=== PATIENT | male | born 1970 | race Caucasian/White ===

== ENCOUNTER 2018-03-31 23:04 | Emergency (ER) | payer OTHER ==
--- NOTE | 2018-04-01 07:01 | EDM.PDOC ---
ED HPI GENERAL MEDICAL PROBLEM - General Chief Complaint: Chest Pain Stated Complaint: Chest Pain/Body Aches/Tingling in Arms Time Seen by Provider: 03/31/18 23:20 Source of Information: Reports: Patient History Limitations: Reports: No Limitations - History of Present Illness INITIAL COMMENTS - FREE TEXT/NARRATIVE: Pt. states that he has been experiencing body aches, chest pain, and weakness for several days. She denies any fever or chills. No N/V/D. He has not recently been ill. Pt. states that he is experiencing some substernal chest pain, respirophasic in nature, that started last night, He denies any other symptoms. 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 Chest Pain/Body Aches Pain Score (Numeric/FACES): 7 - Related Data Allergies Allergy/AdvReac Type Severity Reaction Status Date / Time ciprofloxacin [From Cipro] Allergy Facial Verified 03/31/18 23:56 Swelling Home Meds: Home Meds ALPRAZolam [Xanax] 0.5 mg PO BID PRN 04/01/18 [History] Lisinopril [Prinivil] 20 mg PO DAILY 04/01/18 [History] Nabumetone [Relafen] 750 mg PO BID 04/01/18 [History] Sertraline [Zoloft] 150 mg PO DAILY 04/01/18 [History] Simvastatin [Zocor] 40 mg PO BEDTIME 04/01/18 [History] busPIRone [Buspar] 10 mg PO BEDTIME 04/01/18 [History] Past Medical History HEENT History: Reports: Impaired Vision Cardiovascular History: Reports: High Cholesterol, Hypertension Musculoskeletal History: Reports: Arthritis, Back Pain, Chronic Psychiatric History: Reports: Anxiety, Depression - Infectious Disease History Infectious Disease History: Reports: Shingles - Past Surgical History HEENT Surgical History: Reports: Naso-Sinus Surgery Social & Family History - Tobacco Use Smoking Status *Q: Former Smoker Used Tobacco, but Quit: Yes Month/Year Tobacco Last Used: Quite smoking cigarettes 10 years ago - Alcohol Use Days Per Week of Alcohol Use: 5 Number of Drinks Per Day: 3 Total Drinks Per Week: 15 - Recreational Drug Use Recreational Drug Use: No ED ROS GENERAL - Review of Systems Review Of Systems: See Below Constitutional: Reports: No Symptoms HEENT: Reports: No Symptoms Respiratory: Reports: No Symptoms Cardiovascular: Reports: No Symptoms Endocrine: Reports: No Symptoms GI/Abdominal: Reports: No Symptoms : Reports: No Symptoms Musculoskeletal: Reports: Joint Pain, Muscle Pain Skin: Reports: No Symptoms Neurological: Reports: No Symptoms Psychiatric: Reports: No Symptoms Hematologic/Lymphatic: Reports: No Symptoms Immunologic: Reports: No Symptoms ED EXAM, GENERAL - Physical Exam Exam: See Below Exam Limited By: No Limitations General Appearance: Alert, WD/WN, No Apparent Distress Eye Exam: Bilateral Eye: EOMI, Normal Fundi, Normal Inspection, PERRL Ears: Normal External Exam, Normal Canal, Hearing Grossly Normal, Normal TMs Ear Exam: Bilateral Ear: Auricle Normal, Canal Normal, TM normal Nose: Normal Inspection, Normal Mucosa, No Blood Throat/Mouth: Normal Inspection, Normal Lips, Normal Teeth, Normal Gums, Normal Oropharynx, Normal Voice, No Airway Compromise Head: Atraumatic, Normocephalic Neck: Normal Inspection, Supple, Non-Tender, Full Range of Motion Respiratory/Chest: No Respiratory Distress, Lungs Clear, Normal Breath Sounds, No Accessory Muscle Use, Chest Non-Tender Cardiovascular: Normal Peripheral Pulses, Regular Rate, Rhythm, No Edema, No Gallop, No JVD, No Murmur, No Rub GI/Abdominal: Normal Bowel Sounds, Soft, Non-Tender, No Organomegaly, No Distention, No Abnormal Bruit, No Mass Back Exam: Normal Inspection, Full Range of Motion, NT Extremities: Normal Inspection, Normal Range of Motion, Non-Tender, Normal Capillary Refill, No Pedal Edema Neurological: Alert, Oriented, CN II-XII Intact, Normal Cognition, Normal Gait, Normal Reflexes, No Motor/Sensory Deficits Psychiatric: Normal Affect, Normal Mood Skin Exam: Warm, Dry, Intact, Normal Color, No Rash Lymphatic: No Adenopathy EKG INTERPRETATION Rhythm: NSR [place]: Normal P-Wave: Present QRS: Normal ST-T: Normal QT: Normal Course - Vital Signs Last Recorded V/S: Last Vital Signs Temp 37.2 C 03/31/18 23:05 Pulse 83 03/31/18 23:56 Resp 18 03/31/18 23:56 BP 118/77 03/31/18 23:56 Pulse Ox 93 L 03/31/18 23:56 - Orders/Labs/Meds Orders: Active Orders 24 hr Category Date Time Status EKG Documentation Completion [RC] STAT Care 03/31/18 23:30 Active Chest 2V [CR] Stat Exams 03/31/18 23:29 Taken INFLUENZA A+B AG SCREEN [RM] Stat Lab 03/31/18 23:44 Ordered LYME, WESTERN BLOT, SERUM [REF] Stat Lab 03/31/18 23:31 Received [place] VIRUS IGM [REF] Stat Lab 03/31/18 23:30 Received Labs: Laboratory Tests 03/31/18 04/01/18 04/01/18 Range/Units 00:05 00:00 00:05 WBC 4.5 (4.0-10.0) x10^3/uL RBC 4.78 (4.5-6.0) x10^6/uL Hgb 15.0 (14.0-18.0) g/dL Hct 43.0 (40.0-52.0) % MCV 90.0 (78.0-93.0) fL MCH 31.4 (26.0-32.0) pg MCHC 34.9 (32.0-36.0) g/dL RDW Coeff of Leela 12.6 (10.0-15.0) % Plt Count 180 (130-400) x10^3/uL Neut % (Auto) 59.2 (50.0-80.0) % Lymph % (Auto) 28.1 (25.0-50.0) % [place] % (Auto) 11.2 H (2.0-11.0) % Eos % (Auto) 1.1 (0.0-4.0) % Baso % (Auto) 0.4 (0.2-1.2) % PT (9.6-11.4) SEC INR (2.0-3.5) Sodium 138 (136-145) mmol/L Potassium 3.2 L (3.5-5.1) mmol/L Chloride 103 (98-107) mmol/L Carbon Dioxide 25 (21-32) mmol/L Anion Gap 13.2 (10-20) mmol/L BUN 11 (7-18) mg/dL Creatinine 1.3 (0.70-1.30) mg/dL Est Cr Clr Drug Dosing 79.39 mL/min Estimated GFR (MDRD) 59 Glucose 166 H (74-106) mg/dL Calcium 8.4 L (8.5-10.1) mg/dL Corrected Calcium 8.64 (8.5-10.1) mg/dL Magnesium 2.4 (1.8-2.4) mg/dL Total Bilirubin 0.3 (0.2-1.0) mg/dL AST 25 (15-37) U/L ALT 54 (16-63) U/L Alkaline Phosphatase 106 (46-116) U/L Creatine Kinase 99 (39-308) U/L POC Troponin I (0.00-0.08) ng/mL C-Reactive Protein 2.1 H (<=0.9) mg/dL Total Protein 7.5 (6.4-8.2) g/dL Albumin 3.7 (3.4-5.0) g/dL Globulin 3.8 Albumin/Globulin Ratio 0.97 TSH, Ultra Sensitive 3.111 (0.358-3.74) uIU/mL Urine Color Light yellow (YELLOW) Urine Appearance Clear (CLEAR) Urine pH 6.0 (5.0-8.0) Ur Specific [place] <=1.005 Urine Protein Negative (NEGATIVE) mg/dL Urine Glucose (UA) 100 H (NEGATIVE) mg/dL Urine Ketones Negative (NEGATIVE) mg/dL Urine Occult Blood Negative (NEGATIVE) Urine Nitrite Negative (NEGATIVE) Urine Bilirubin Negative (NEGATIVE) Urine Urobilinogen 0.2 (0.2) EU/dL Ur Leukocyte Esterase Negative (NEGATIVE) Urine RBC 0-5 (NOT SEEN) /HPF Urine WBC 0-5 (NOT SEEN) /HPF Ur Squamous Epith Cells Not seen (NEGATIVE) /HPF Urine Bacteria Rare (NEGATIVE) /HPF Urine Mucus Not seen (NEGATIVE) /LPF 04/01/18 04/01/18 Range/Units 00:05 00:10 WBC (4.0-10.0) x10^3/uL RBC (4.5-6.0) x10^6/uL Hgb (14.0-18.0) g/dL Hct (40.0-52.0) % MCV (78.0-93.0) fL MCH (26.0-32.0) pg MCHC (32.0-36.0) g/dL RDW Coeff of Leela (10.0-15.0) % Plt Count (130-400) x10^3/uL Neut % (Auto) (50.0-80.0) % Lymph % (Auto) (25.0-50.0) % [place] % (Auto) (2.0-11.0) % Eos % (Auto) (0.0-4.0) % Baso % (Auto) (0.2-1.2) % PT 9.9 (9.6-11.4) SEC INR 0.9 L (2.0-3.5) Sodium (136-145) mmol/L Potassium (3.5-5.1) mmol/L Chloride (98-107) mmol/L Carbon Dioxide (21-32) mmol/L Anion Gap (10-20) mmol/L BUN (7-18) mg/dL Creatinine (0.70-1.30) mg/dL Est Cr Clr Drug Dosing mL/min Estimated GFR (MDRD) Glucose (74-106) mg/dL Calcium (8.5-10.1) mg/dL Corrected Calcium (8.5-10.1) mg/dL Magnesium (1.8-2.4) mg/dL Total Bilirubin (0.2-1.0) mg/dL AST (15-37) U/L ALT (16-63) U/L Alkaline Phosphatase (46-116) U/L Creatine Kinase (39-308) U/L POC Troponin I 0.00 (0.00-0.08) ng/mL C-Reactive Protein (<=0.9) mg/dL Total Protein (6.4-8.2) g/dL Albumin (3.4-5.0) g/dL Globulin Albumin/Globulin Ratio TSH, Ultra Sensitive (0.358-3.74) uIU/mL Urine Color (YELLOW) Urine Appearance (CLEAR) Urine pH (5.0-8.0) Ur Specific [place] Urine Protein (NEGATIVE) mg/dL Urine Glucose (UA) (NEGATIVE) mg/dL Urine Ketones (NEGATIVE) mg/dL Urine Occult Blood (NEGATIVE) Urine Nitrite (NEGATIVE) Urine Bilirubin (NEGATIVE) Urine Urobilinogen (0.2) EU/dL Ur Leukocyte Esterase (NEGATIVE) Urine RBC (NOT SEEN) /HPF Urine WBC (NOT SEEN) /HPF Ur Squamous Epith Cells (NEGATIVE) /HPF Urine Bacteria (NEGATIVE) /HPF Urine Mucus (NEGATIVE) /LPF Departure - Departure Time of Disposition: 01:13 Disposition: Home, Self-Care 01 Condition: Good Clinical Impression: Atypical chest pain - Discharge Information Instructions: Muscle Pain, Adult, Nonspecific Chest Pain, [id number] Referrals: Maxine Kelly PA-C [Primary Care Provider] - Forms: ED Department Discharge Additional Instructions: Home to rest. Tylenol and ibuprofen for discomfort. I will let you know the results of your lyme and [place] tests. Follow-up in clinic in 7-10 days. - My Orders Last 24 Hours: My Active Orders 03/31/18 23:29 Chest 2V [CR] Stat 03/31/18 23:30 EKG Documentation Completion [RC] STAT [place] VIRUS IGM [REF] Stat 03/31/18 23:31 LYME, WESTERN BLOT, SERUM [REF] Stat 03/31/18 23:44 INFLUENZA A+B AG SCREEN [RM] Stat - Assessment/Plan Last 24 Hours: My Active Orders 03/31/18 23:29 Chest 2V [CR] Stat 03/31/18 23:30 EKG Documentation Completion [RC] STAT [place] VIRUS IGM [REF] Stat 03/31/18 23:31 LYME, WESTERN BLOT, SERUM [REF] Stat 03/31/18 23:44 INFLUENZA A+B AG SCREEN [RM] Stat
== END 2018-04-01 01:13 | disposition home or self-care (01) ==
LOC: VM.ED 23:04
DX: R07.89 Other chest pain (principal); I10 Essential (primary) hypertension; E78.00 Pure hypercholesterolemia, unspecified; F41.9 Anxiety disorder, unspecified; M19.90 Unspecified osteoarthritis, unspecified site; F32.9 Major depressive disorder, single episode, unspecified; Z87.891 Personal history of nicotine dependence; Z79.899 Other long term (current) drug therapy; Z88.1 Allergy status to other antibiotic agents
CPT/HCPCS: 36415; 71046; 80053; 81001; 82550; 83735; 84443; 84484; 85025; 85610; 86140; 86617; 86618; 86788; 87804; 87804-59; 93005; 99285

== ENCOUNTER 2020-12-13 15:32 | Emergency (ER) | payer OTHER ==
[2020-12-13] MEDS ORDERED: Sodium Chloride 0.9% 10 ML Syringe FLUSH PRN (15:46)
[2020-12-13] MEDS: Sodium Chloride 0.9% 1,000 ML IV SCH (16:02)
[2020-12-13] MEDS: Acetaminophen 500 MG Tab PO ONE (16:03)
--- NOTE | 2020-12-13 16:13 | EDM.PDOC ---
ED HPI GENERAL MEDICAL PROBLEM - General Stated Complaint: SHORTNESS OF BREATH, Time Seen by Provider: 12/13/20 15:40 Source of Information: Reports: Patient History Limitations: Reports: No Limitations - History of Present Illness INITIAL COMMENTS - FREE TEXT/NARRATIVE: Pt. presents to ER with acute onset cough, fever, chills, myalgias, arthralgias, and fatigue that started acutely today. He states that he was starting to feel a bit run down yesterday, but a majority of the symptoms started today. Pt. recently underwent a vasectomy and developed a postsurgical infection on 11/23. This was successfully treated with antibiotics, and he had an ultrasound within the past several days that showed resolution of the infection. He states that he has had continuous testicular discomfort since the procedure, but states that it is not any worse today than normal. The procedure was done with local anesthetic, denies any recent hospitalization/intubation. No recent travel. Pt. complains of shortness of breath, especially when he is walking. He states that he feels like he is "going to pass out". Denies any substernal chest pain. No jaw, arm, neck or back pain. No nausea, vomiting, or diarrhea. No increased peripheral edema. No rashes. Denies any sore throat. No rhinorrhea. Onset: Today Onset Date: 12/13/20 Location: Reports: Chest, Generalized Associated Symptoms: Reports: Cough, Fever/Chills, Malaise, Shortness of Breath, Other (body aches) Generalized Pain Score (Numeric/FACES): 10 - Related Data Allergies Allergy/AdvReac Type Severity Reaction Status Date / Time ciprofloxacin [From Cipro] Allergy Facial Verified 12/13/20 16:12 Swelling Home Meds: Home Meds ALPRAZolam [Xanax] 0.5 mg PO BID PRN 04/01/18 [History] Sertraline [Zoloft] 200 mg PO DAILY 04/01/18 [History] lisinopriL [Prinivil] 20 mg PO BID 04/01/18 [History] Aspirin 81 mg PO DAILY 12/13/20 [History] Multivitamin [Multi-Vitamin Daily] 1 each PO DAILY 12/13/20 [History] Rosuvastatin [Crestor] 20 mg PO DAILY 12/13/20 [History] busPIRone [Buspar] 7.5 mg PO BID 12/13/20 [History] Past Medical History HEENT History: Reports: Impaired Vision Cardiovascular History: Reports: High Cholesterol, Hypertension Musculoskeletal History: Reports: Arthritis, Back Pain, Chronic Psychiatric History: Reports: Anxiety, Depression - Infectious Disease History Infectious Disease History: Reports: Shingles - Past Surgical History HEENT Surgical History: Reports: Naso-Sinus Surgery ED ROS GENERAL - Review of Systems Review Of Systems: See Below Constitutional: Reports: Fever, Chills, Malaise, Weakness, Fatigue HEENT: Reports: No Symptoms Respiratory: Reports: Shortness of Breath, Cough Cardiovascular: Reports: No Symptoms Endocrine: Reports: No Symptoms GI/Abdominal: Reports: No Symptoms : Reports: Other (See HPI) Musculoskeletal: Reports: No Symptoms Skin: Reports: No Symptoms Neurological: Reports: No Symptoms Psychiatric: Reports: No Symptoms Hematologic/Lymphatic: Reports: No Symptoms Immunologic: Reports: No Symptoms ED EXAM, GENERAL - Physical Exam Exam: See Below Exam Limited By: No Limitations General Appearance: Alert, WD/WN, No Apparent Distress Eye Exam: Bilateral Eye: EOMI, PERRL Ears: Other (R ear obstructed with cerumen. L TM normal. Denies any ear pain.) Nose: Normal Inspection, No Blood Throat/Mouth: Normal Inspection, Normal Lips, Normal Teeth, Normal Oropharynx, Normal Voice, No Airway Compromise Head: Atraumatic, Normocephalic Neck: Normal Inspection, Supple, Non-Tender, Full Range of Motion Respiratory/Chest: No Respiratory Distress, No Accessory Muscle Use, Crackles, Rhonchi Cardiovascular: Regular Rate, Rhythm, No Edema, No JVD, No Murmur Peripheral Pulses: 4+: Radial (L) GI/Abdominal: Soft, Non-Tender, No Distention, No Mass (Male) Exam: Scrotum Tenderness (L), Scrotum Tenderness (R), Testicular Tenderness (L), Testicular Tenderness (R), Other (Evidence of recent vasectomy with ovoid surgical incision to scrotum, filling with granulation tissue. No discharge. Scrotum and testes are extremely tender to palpation. Scrotum somewhat reddened-unknown if this is normal variant for the patient of cellulitis. Redness limited to scrotal tissue.) Rectal (Males) Exam: Deferred Back Exam: Normal Inspection, Full Range of Motion Extremities: Normal Inspection, Normal Range of Motion, Non-Tender, No Pedal Edema, Normal Capillary Refill Neurological: Alert, Oriented, CN II-XII Intact, Normal Gait, Normal Reflexes, No Motor/Sensory Deficits Psychiatric: Normal Affect, Normal Mood Skin Exam: Warm, Dry, Intact, Normal Color, No Rash Lymphatic: No Adenopathy Course - Vital Signs Last Recorded V/S: Last Vital Signs Temp 39.1 C H 12/13/20 15:35 Pulse 121 H 12/13/20 16:55 Resp 32 H 12/13/20 16:55 BP 136/82 12/13/20 16:55 Pulse Ox 99 12/13/20 16:55 - Orders/Labs/Meds Orders: Active Orders 24 hr Category Date Time Status EKG Documentation Completion [RC] STAT Care 12/13/20 15:46 Active CULTURE BLOOD [BC] Stat Lab 12/13/20 15:45 Received CULTURE BLOOD [BC] Stat Lab 12/13/20 16:20 Received Sodium Chloride 0.9% [Normal Saline] 1,000 ml Med 12/13/20 16:00 Active IV ASDIRECTED Sodium Chloride 0.9% [Saline Flush] Med 12/13/20 15:46 Active 10 ml FLUSH ASDIRECTED PRN Blood Culture x2 Reflex Set [OM.PC] Stat Oth 12/13/20 15:47 Ordered Peripheral IV Insertion Adult [OM.PC] Routine Oth 12/13/20 15:47 Ordered Medication Orders Sodium Chloride (Normal Saline) 1,000 mls @ 1,000 mls/hr IV ASDIRECTED BLAKE Last Admin: 12/13/20 16:02 Dose: 1,000 mls/hr Documented by: PAO Sodium Chloride (Saline Flush) 10 ml FLUSH ASDIRECTED PRN PRN Reason: Keep Vein Open Labs: Laboratory Tests 12/13/20 12/13/20 12/13/20 Range/Units 15:48 16:20 16:20 WBC 20.4 H* (4.0-10.0) x10^3/uL RBC 4.34 L (4.5-6.0) x10^6/uL Hgb 13.7 L (14.0-18.0) g/dL Hct 39.2 L (40.0-52.0) % MCV 90.3 (78.0-93.0) fL MCH 31.6 (26.0-32.0) pg MCHC 34.9 (32.0-36.0) g/dL RDW Coeff of Leela 12.4 (10.0-15.0) % Plt Count 226 (130-400) x10^3/uL Add Manual Diff Yes Neutrophils % (Manual) 88 H (50-80) % Band Neutrophils % 1 (0-6) % Lymphocytes % (Manual) 4 L (25-50) % Monocytes % (Manual) 7 (2-11) % Platelet Estimate Adequate PT 10.5 (9.9-12.5) SEC INR 0.9 L (2.0-3.5) APTT (25.6-32.8) SEC D-Dimer, Quantitative 0.46 (<=0.58) mg/LFEU Sodium (136-145) mmol/L Potassium (3.5-5.1) mmol/L Chloride (98-107) mmol/L Carbon Dioxide (21-32) mmol/L Anion Gap (5-15) mmol/L BUN (7-18) mg/dL Creatinine (0.70-1.30) mg/dL Est Cr Clr Drug Dosing mL/min Estimated GFR (MDRD) Glucose (74-106) mg/dL Lactic Acid (0.4-2.0) mmol/L Calcium (8.5-10.1) mg/dL Corrected Calcium (8.5-10.1) mg/dL Magnesium (1.8-2.4) mg/dL Total Bilirubin (0.2-1.0) mg/dL AST (15-37) U/L ALT (16-63) U/L Alkaline Phosphatase (46-116) U/L Troponin I (<=0.056) ng/mL C-Reactive Protein (<=0.9) mg/dL NT-Pro-B Natriuret Pep (<=125) pg/mL Total Protein (6.4-8.2) g/dL Albumin (3.4-5.0) g/dL Globulin Albumin/Globulin Ratio Urine Color (YELLOW) Urine Appearance (CLEAR) Urine pH (5.0-8.0) Ur Specific [place] Urine Protein (NEGATIVE) mg/dL Urine Glucose (UA) (NEGATIVE) mg/dL Urine Ketones (NEGATIVE) mg/dL Urine Occult Blood (NEGATIVE) Urine Nitrite (NEGATIVE) Urine Bilirubin (NEGATIVE) Urine Urobilinogen (0.2) EU/dL Ur Leukocyte Esterase (NEGATIVE) Influenza Type A RNA Negative (NEGATIVE) Influenza Type B RNA Negative (NEGATIVE) SARS-CoV-2 RNA (RADHA) Negative (NEGATIVE) 12/13/20 12/13/20 12/13/20 Range/Units 16:20 16:20 16:20 WBC (4.0-10.0) x10^3/uL RBC (4.5-6.0) x10^6/uL Hgb (14.0-18.0) g/dL Hct (40.0-52.0) % MCV (78.0-93.0) fL MCH (26.0-32.0) pg MCHC (32.0-36.0) g/dL RDW Coeff of Leela (10.0-15.0) % Plt Count (130-400) x10^3/uL Add Manual Diff Neutrophils % (Manual) (50-80) % Band Neutrophils % (0-6) % Lymphocytes % (Manual) (25-50) % Monocytes % (Manual) (2-11) % Platelet Estimate PT (9.9-12.5) SEC INR (2.0-3.5) APTT 24.1 L (25.6-32.8) SEC D-Dimer, Quantitative (<=0.58) mg/LFEU Sodium 137 (136-145) mmol/L Potassium 4.0 (3.5-5.1) mmol/L Chloride 99 (98-107) mmol/L Carbon Dioxide 25 (21-32) mmol/L Anion Gap 17.0 H (5-15) mmol/L BUN 12 (7-18) mg/dL Creatinine 1.2 (0.70-1.30) mg/dL Est Cr Clr Drug Dosing 83.23 mL/min Estimated GFR (MDRD) > 60 Glucose 97 (74-106) mg/dL Lactic Acid 1.8 (0.4-2.0) mmol/L Calcium 9.1 (8.5-10.1) mg/dL Corrected Calcium 9.26 (8.5-10.1) mg/dL Magnesium 1.6 L (1.8-2.4) mg/dL Total Bilirubin 0.8 (0.2-1.0) mg/dL AST 21 (15-37) U/L ALT 81 H (16-63) U/L Alkaline Phosphatase 101 (46-116) U/L Troponin I < 0.017 (<=0.056) ng/mL C-Reactive Protein 2.4 H (<=0.9) mg/dL NT-Pro-B Natriuret Pep (<=125) pg/mL Total Protein 7.6 (6.4-8.2) g/dL Albumin 3.8 (3.4-5.0) g/dL Globulin 3.8 Albumin/Globulin Ratio 1.00 Urine Color (YELLOW) Urine Appearance (CLEAR) Urine pH (5.0-8.0) Ur Specific [place] Urine Protein (NEGATIVE) mg/dL Urine Glucose (UA) (NEGATIVE) mg/dL Urine Ketones (NEGATIVE) mg/dL Urine Occult Blood (NEGATIVE) Urine Nitrite (NEGATIVE) Urine Bilirubin (NEGATIVE) Urine Urobilinogen (0.2) EU/dL Ur Leukocyte Esterase (NEGATIVE) Influenza Type A RNA (NEGATIVE) Influenza Type B RNA (NEGATIVE) SARS-CoV-2 RNA (RADHA) (NEGATIVE) 12/13/20 12/13/20 Range/Units 16:20 16:35 WBC (4.0-10.0) x10^3/uL RBC (4.5-6.0) x10^6/uL Hgb (14.0-18.0) g/dL Hct (40.0-52.0) % MCV (78.0-93.0) fL MCH (26.0-32.0) pg MCHC (32.0-36.0) g/dL RDW Coeff of [place]ela (10.0-15.0) % Plt Count (130-400) x10^3/uL Add Manual Diff Neutrophils % (Manual) (50-80) % Band Neutrophils % (0-6) % Lymphocytes % (Manual) (25-50) % Monocytes % (Manual) (2-11) % Platelet Estimate PT (9.9-12.5) SEC INR (2.0-3.5) APTT (25.6-32.8) SEC D-Dimer, Quantitative (<=0.58) mg/LFEU Sodium (136-145) mmol/L Potassium (3.5-5.1) mmol/L Chloride (98-107) mmol/L Carbon Dioxide (21-32) mmol/L Anion Gap (5-15) mmol/L BUN (7-18) mg/dL Creatinine (0.70-1.30) mg/dL Est Cr Clr Drug Dosing mL/min Estimated GFR (MDRD) Glucose (74-106) mg/dL Lactic Acid (0.4-2.0) mmol/L Calcium (8.5-10.1) mg/dL Corrected Calcium (8.5-10.1) mg/dL Magnesium (1.8-2.4) mg/dL Total Bilirubin (0.2-1.0) mg/dL AST (15-37) U/L ALT (16-63) U/L Alkaline Phosphatase (46-116) U/L Troponin I (<=0.056) ng/mL C-Reactive Protein (<=0.9) mg/dL NT-Pro-B Natriuret Pep 30 (<=125) pg/mL Total Protein (6.4-8.2) g/dL Albumin (3.4-5.0) g/dL Globulin Albumin/Globulin Ratio Urine Color Yellow (YELLOW) Urine Appearance Clear (CLEAR) Urine pH 6.0 (5.0-8.0) Ur Specific [place] 1.015 Urine Protein Negative (NEGATIVE) mg/dL Urine Glucose (UA) Negative (NEGATIVE) mg/dL Urine Ketones Negative (NEGATIVE) mg/dL Urine Occult Blood Negative (NEGATIVE) Urine Nitrite Negative (NEGATIVE) Urine Bilirubin Negative (NEGATIVE) Urine Urobilinogen 0.2 (0.2) EU/dL Ur Leukocyte Esterase Negative (NEGATIVE) Influenza Type A RNA (NEGATIVE) Influenza Type B RNA (NEGATIVE) SARS-CoV-2 RNA (RADHA) (NEGATIVE) Meds: Medications Generic Name Dose Route Start Last Admin Trade Name Freq PRN Reason Stop Dose Admin Sodium Chloride 1,000 mls @ 1,000 mls/hr 12/13/20 16:00 12/13/20 16:02 Normal Saline IV 1,000 mls/hr ASDIRECTED BLAKE Administration Sodium Chloride 10 ml 12/13/20 15:46 Saline Flush FLUSH ASDIRECTED PRN Keep Vein Open Discontinued Medications Generic Name Dose Route Start Last Admin Trade Name Freq PRN Reason Stop Dose Admin Acetaminophen 1,000 mg 12/13/20 15:49 12/13/20 16:03 Tylenol Extra Strength PO 12/13/20 15:50 1,000 mg ONETIME ONE Administration Ceftriaxone Sodium 2 gm 12/13/20 16:13 12/13/20 16:20 Rocephin IVPUSH 12/13/20 16:14 2 gm STAT ONE Administration - Re-Assessments/Exams Free Text/Narrative Re-Assessment/Exam: Pt. was given a 1 liter fluid bolus on arrival to ER. He was given 1 gm of acetaminophen PO. He was started on rocephin 2gm IV and azithromycin 500mg IV. He was quite toxic appearing on arrival to ER. Heart and resp. rate did decrease with acetaminophen and fluids. Departure - Departure Time of Disposition: 17:18 Disposition: DC/Tfer to [facility] 02 Clinical Impression: SIRS (systemic inflammatory response syndrome), Testicular pain - Discharge Information Referrals: Maxine Kelly PA-C [Primary Care Provider] - Sepsis Event Note (ED) - Focused Exam Vital Signs: Vital Signs Temp Pulse Resp BP Pulse Ox 12/13/20 16:55 121 H 32 H 136/82 99 12/13/20 16:30 125 H 36 H 131/78 97 12/13/20 15:35 39.1 C H 136 H 36 H 150/87 H 100 - Problem List Review Problem List Initiated/Reviewed/Updated: Yes - My Orders Last 24 Hours: My Active Orders 12/13/20 15:45 CULTURE BLOOD [BC] Stat 12/13/20 15:46 EKG Documentation Completion [RC] STAT Sodium Chloride 0.9% [Saline Flush] 10 ml FLUSH ASDIRECTED PRN 12/13/20 15:47 Blood Culture x2 Reflex Set [OM.PC] Stat Peripheral IV Insertion Adult [OM.PC] Routine 12/13/20 16:00 Sodium Chloride 0.9% [Normal Saline] 1,000 ml IV ASDIRECTED 12/13/20 16:20 CULTURE BLOOD [BC] Stat - Assessment/Plan Last 24 Hours: My Active Orders 12/13/20 15:45 CULTURE BLOOD [BC] Stat 12/13/20 15:46 EKG Documentation Completion [RC] STAT Sodium Chloride 0.9% [Saline Flush] 10 ml FLUSH ASDIRECTED PRN 12/13/20 15:47 Blood Culture x2 Reflex Set [OM.PC] Stat Peripheral IV Insertion Adult [OM.PC] Routine 12/13/20 16:00 Sodium Chloride 0.9% [Normal Saline] 1,000 ml IV ASDIRECTED 12/13/20 16:20 CULTURE BLOOD [BC] Stat Plan: Pt. will be transferred to [facility] for scrotal ultrasound. Signs and symptoms most consistent with pneumonia, has he has diffuse crackles in the bases and he is short of breath, but post vasectomy infection must be ruled out. He was given a 2 gm of rocephin and 500mg azithromycin IV. Will continue IV fluids at 250ml/hr. He will be transported via [facility] ground ambulance and they plan to see him in ER. Dr. Mcfadden graciously accepted patient in transfer. Discussed findings with patient and family.
[2020-12-13] MEDS: cefTRIAXone 2 GM Vial IVPUSH ONE (16:20)
--- NOTE | 2020-12-13 16:37 | CR ---
[id number] RAD/RAD Chest PA or AP 1V EXAM: SINGLE VIEW CHEST. INDICATION: COUGH FEVER COMPARISON: CORRELATION IS MADE WITH MARCH 31, 2018 FINDINGS: The lungs are clear The cardiomediastinal contour is stable IMPRESSION: NO PNEUMONIA Adebayo Chin MD 12/13/20 [id number] Thank you for allowing us to participate in the care of your patient.
[2020-12-13 16:40] LABS: CORONAVIRUS COVID-19 NAA NEGATIVE (NEGATIVE)
[2020-12-13 16:55] LABS: CHLORIDE,CL 99 mmol/L (98-107); SODIUM,NA 137 mmol/L (136-145)
[2020-12-13 16:56] VITALS: BP 136/82; PULSE 121
[2020-12-13] MEDS: Azithromycin 500 MG in Sodium Chloride 0.9% 250 ML IV ONE (17:26)
== END 2020-12-13 18:05 | disposition short-term general hospital (02) ==
LOC: VM.ED 15:32
DX: R65.10 Systemic inflammatory response syndrome (SIRS) of non-infectious origin without acute organ dysfunction (principal); N50.812 Left testicular pain; N50.811 Right testicular pain; E78.00 Pure hypercholesterolemia, unspecified; I10 Essential (primary) hypertension; Z79.899 Other long term (current) drug therapy; Z20.822 Contact with and (suspected) exposure to COVID-19; Z88.1 Allergy status to other antibiotic agents; Z79.82 Long term (current) use of aspirin
CPT/HCPCS: 0240U; 36415; 71045; 80053; 81003; 83605; 83735; 83880; 84484; 85025; 85379; 85610; 85730; 86140; 87040; 93005; 96365; 96375; 99284; 99285-25; A9270-GY; J0456; J0696; J7030; J7050

== ENCOUNTER 2021-10-28 08:11 | Day surgery (SDC) | payer OTHER ==
[~2021-10-28 08:11] MED LIST: Lactated Ringers 1,000 ML IV SCH
[2021-10-28] MEDS ORDERED: fentaNYL 100 MCG/2 ML SDV ONE (09:00)
[2021-10-28] MEDS ORDERED: Propofol 200 MG/20 ML SDV ONE ×3 (09:00→09:57)
--- NOTE | 2021-10-29 14:28 | OR ---
PREOPERATIVE DIAGNOSIS: First screening colonoscopy. POSTOPERATIVE DIAGNOSIS: Colon polyps. PROCEDURE PERFORMED: Total flexible colonoscopy with biopsies. ANESTHESIA: MAC. COMPLICATIONS: None apparent. BLOOD LOSS: Minimal. FINDINGS: 1. Transverse colon polyp, 2 mm, cold forceps. 2. Transverse colon polyp, 3 mm, cold forceps. 3. Transverse colon polyps x2, 4 mm, cold snare. 4. Descending polyp, 3 mm, cold snare. 5. Rectal polyp, 2 mm, cold snare. Start time 0953, cecum 0959, stop 1019. BOWEL PREP: [place] class 3. INDICATIONS: Mr. Giordano is a 51-year-old male who is here for his first screening colonoscopy. No history of bloody or dark black stools. No family history of colon cancer. PROCEDURE IN DETAIL: Informed consent was obtained. The patient was brought to the procedure room, placed in left lateral decubitus position. MAC anesthesia was induced per Anesthesia colleagues. Colonoscope was introduced in the rectum and advanced all the way to the cecum. The appendiceal orifice and terminal ileum were photographed. The colonoscope was then slowly withdrawn. No abnormalities were identified except for as mentioned in the above finding section. A retroflexed view was obtained. The colonoscope was withdrawn. Patient was awoken from anesthesia by Anesthesia colleagues without incident. PATHOLOGY: A) colon, transverse polyp Fragments of tubular adenoma. B) colon, transverse polyp Fragments of sessile serrated adenoma. C) colon, transverse polyp Sessile serrated adenoma. D) colon, descending polyp Hyperplastic polyp. E) colon, rectum Minute fragment of benign colonic mucosa without pathologic abnormality. Recommend repeat colonoscopy in 3 years. RKM: 10/28/2021 10:30:58 MODL: 10/28/2021 11:58:06 /[id number] MARIANA
--- NOTE | 2021-11-08 11:47 | LETTER ---
11/08/2021 Cristiano Almeida [address] [place] [address] RE: CRISTIANO ALMEIDA : 1970 Dear Mr. Almeida: I am writing to inform you of the pathology results of your recent colonoscopy. You had 4 tubular adenomas. A tubular adenoma is a polyp which does not contain cancer, but it can become cancer which is why we remove them. You will need a repeat colonoscopy in 3 years. Warmest regards,
== END 2021-10-28 11:25 | disposition home or self-care (01) ==
LOC: VM.SDS 08:11
PROVIDERS: ATTEND Student in an Organized Health Care Education/Training Program
DX: Z12.11 Encounter for screening for malignant neoplasm of colon (principal); D12.3 Benign neoplasm of transverse colon; K62.1 Rectal polyp; I10 Essential (primary) hypertension; G47.33 Obstructive sleep apnea (adult) (pediatric); F32.A Depression, unspecified; J30.9 Allergic rhinitis, unspecified; F41.1 Generalized anxiety disorder; I25.10 Atherosclerotic heart disease of native coronary artery without angina pectoris; E78.49 Other hyperlipidemia; R73.02 Impaired glucose tolerance (oral); Z79.82 Long term (current) use of aspirin; Z87.891 Personal history of nicotine dependence; Z98.890 Other specified postprocedural states
CPT/HCPCS: 00812; 45380; 45385; J2704; J3010; J7120

== ENCOUNTER 2024-11-13 08:28 | Day surgery (SDC) | payer OTHER ==
[2024-11-13] MEDS: Lactated Ringers 1,000 ML IV SCH (08:41)
[2024-11-13] MEDS ORDERED: Propofol 200 MG/20 ML SDV ONE ×2 (09:31→10:24)
[2024-11-13] MEDS ORDERED: fentaNYL 100 MCG/2 ML SDV ONE (09:32)
== END 2024-11-13 11:58 | disposition home or self-care (01) ==
LOC: VM.SDS 08:28
PROVIDERS: ATTEND Family Medicine
DX: Z12.11 Encounter for screening for malignant neoplasm of colon (principal); D12.0 Benign neoplasm of cecum; D12.6 Benign neoplasm of colon, unspecified; K63.5 Polyp of colon; Z86.0100 Personal history of colon polyps, unspecified; I10 Essential (primary) hypertension; E11.9 Type 2 diabetes mellitus without complications; F33.1 Major depressive disorder, recurrent, moderate; E78.49 Other hyperlipidemia; Z87.891 Personal history of nicotine dependence; Z79.85 Long-term (current) use of injectable non-insulin antidiabetic drugs; Z79.899 Other long term (current) drug therapy; Z88.8 Allergy status to other drugs, medicaments and biological substances; Z83.719 Family history of colon polyps, unspecified
CPT/HCPCS: 45380; 45385; 82947; J2704; J3010; J7120